=== PATIENT | male | born 1965 | race Caucasian/White ===

== ENCOUNTER 2018-11-21 10:12 | Observation (INO) ==
[2018-11-21] MEDS ORDERED: NALOXONE HCL 1 MG/1 ML SYRG IV ONE ×2 (10:14→10:20)
[2018-11-21 10:26] LABS: Urine Bilirubin Negative (NEGATIVE); Urine Blood Negative /ul (NEGATIVE); Urine Ketone Negative (NEGATIVE); Urine Nitrite Negative (NEGATIVE); Urine Protein Negative (NEGATIVE); Urine Specific Gravity <=1.005 SP.GR. (1.005-1.030); Urine Urobilinogen Normal (NORMAL); Urine pH 5.5 pH (5.0-7.0)
[2018-11-21 10:35] LABS: Urine Appearance Clear (CLEAR); Urine Bacteria None Seen; Urine Color Pale Yellow; Urine RBC None Seen /hpf (0-5); Urine WBC None Seen /hpf (0-5)
[2018-11-21 10:39] LABS: Cocaine Ur Negative (NEGATIVE); Urine Barbiturate Negative (NEGATIVE); Urine Benzodiazepines Negative (NEGATIVE); Urine Opiates Negative (NEGATIVE); Urine PCP Negative (NEGATIVE); Urine THC Negative (NEGATIVE)
[2018-11-21 10:44] LABS: Hematocrit 48.2 % (42.0-52.0); Hemoglobin 16.9 gm/dL (13.5-18.0); Mean Cell Volume 93.8 fl (78-100); Mean Corpuscular Hemoglobin 32.9 pg (27-31); Mean Corpuscular Hgb Conc 35.1 g/dl (32-36); Neutrophil # 2.3 K/mm3 (1.3-6.0); Neutrophil % 32.5 % (42-75.0); Platelet Count 203 K/mm3 (150-450); Red Blood Count 5.14 M/mm3 (4.7-6.0); Red Cell Distribution Width 14.5 % (11.5-14.0); White Blood Count 7.1 K/mm3 (4.0-10.5)
[2018-11-21 11:03] LABS: ALT 48 U/L (19-67); AST 27 U/L (0-48); Albumin * 3.7 gm/dl (3.4-5.0); Alkaline Phosphatase * 62 U/L (50-170); Anion Gap 15.7 mmol/L (6.8-13.8); BUN/Creatinine Ratio 12.7 (9.0-21.6); Bilirubin, Total 0.4 mg/dL (0.0-1.1); Blood Urea Nitrogen 9 mg/dL (6-23); Ca. Corrected For Albumin 8.6 mg/dL (8.4-10.2); Calcium * 8.7 mg/dL (7.9-10.9); Chloride 104 mmol/L (97-106); Glucose * 115 mg/dL (70-110); Potassium 3.7 mmol/L (3.4-4.6); Salicylate 3.3 mg/dL (2.8-20.0); Sodium 140 mmol/L (132-142); Total Protein 7.1 gm/dL (6.2-8.2)
[2018-11-21] MEDS ORDERED: NORMAL SALINE 1,000 ML IV ONE ×2 (11:46→13:12)
--- NOTE | 2018-11-21 12:25 | ERNOTE ---
Neuro HPI ER Record Presenting Symptoms: other - Patient was found down in the parking lot and just prior to being found had apparently thrown up. Time Seen by Provider: 11/21/18 10:22 Source: EMS, police Exam Limitations: intoxication Allergies/Adverse Reactions: Allergies Allergy/AdvReac Type Severity Reaction Status Date / Time No Known Allergies Allergy Unverified 11/21/18 10:34 Home Medications: HOME MEDICATIONS Unobtainable 11/21/18 [Last Taken Unknown] - History of Present Illness Narrative: Patient woke up and stated that he had indeed drank an excessive amount of alcohol. Patient is very irascible and given his advanced state of intoxication we are unable to reason with him. Onset: cannot confirm onset, other - pt confirms drinking alot of ETOH last night and into this morning Severity: severe - Character of Deficits Additional Deficits: Present: impaired speech - slurring his speech secondary to ETOH intoxication Baseline Cognition: Present: alert, oriented x 4 Baseline Gait: Present: walks w/o assistance Associated Symptoms: Reports: trouble concentrating, trouble thinking Review of Systems - Review of Systems Constitutional: Present: See HPI EYE: Present: no symptoms reported ENT: Present: no symptoms reported Respiratory: Present: no symptoms reported Cardiology: Present: no symptoms reported Gastrointestinal/Abdominal: Present: no symptoms reported Genitourinary: Present: no symptoms reported Musculoskeletal: Present: no symptoms reported Skin: Present: no symptoms reported Neurological: Present: no symptoms reported Endocrine: Present: no symptoms reported Hematologic/Lymphatic: Present: no symptoms reported Psych: Present: no symptoms reported All Other Systems: All systems neg except as marked - while the patient denies any other symptoms, he is quite intoxicated Medical History (Updated 11/21/18 @ 12:24 by Lois Walsh RN) unable to obtain PMH d/t AMS Surgical History: Surgical History (Updated 11/21/18 @ 12:24 by Lois Walsh RN) unable to obtain PMH d/t AMS Family History: Family History (Updated 11/21/18 @ 12:24 by Lois Walsh RN) Other unable to obtain d/t AMS Social History: Preferred Language Frisian No Social History Section defined Physical Exam - Physical Exam General Appearance: Present: wd/wn, alert, anxious Head Exam: Present: normal inspection, no evidence of injury Eye Exam: Normal inspection: bilateral, PERRL: bilateral Ears, Nose, Throat: Present: normal ENT inspection, H, normal pharynx Neck: Present: normal inspection, nontender Respiratory: Present: no respiratory distress, normal breath sounds, no accessory muscle use, chest nontender, lungs clear Cardiovascular/Chest: Present: regular rate, rhythm, no murmur, normal peripheral pulses Gastrointestinal/Abdominal: Present: normal bowel sounds, nontender, nondistended, soft, no organomegaly Rectal Exam: Present: deferred Back Exam: Present: normal inspection, normal range of motion Extremity Exam: Present: normal inspection, non-tender, no edema, normal range of motion Neurological Exam: Present: disoriented to time, other - I suspect all secondary to the severe ETOH intoxication Skin Exam: Present: normal color, warm/dry Lymphatic Exam: Present: no adenopathy Progress - Results and Orders Patient's Lab Results:: I have reviewed the patient's lab results. - Vital Signs Patient's Vital Signs:: I have reviewed the patient's vital signs. Vital Signs: Vital Signs 11/21/18 10:13 11/21/18 10:29 11/21/18 10:30 Pulse Rate 71 72 74 Respiratory Rate 15 21 H Blood Pressure 100/66 91/64 O2 Sat by Pulse Oximetry 94 99 11/21/18 11:22 11/21/18 12:04 Pulse Rate 73 74 Respiratory Rate 15 15 Blood Pressure 89/65 L 110/64 O2 Sat by Pulse Oximetry 94 94 - EKG EKG #1 EKG: NSR EKG read: Reviewed by me - X-Ray X-Ray #1 X-Ray: chest Interpretation: Reviewed by me - Progress/Reassessment Chief Complaint: Altered Mental Status Plan - Plan Plan: Patient is far too intoxicated to be discharged, as I suspect is going to take at least 24 hours to get him back to legally not intoxicated state. Patient will be admitted for 24-hour observation for acute detox. Patient appears to be protecting his airway at this point so I have withheld endotracheal intubation, however that may become necessary and we will hold that in mind. Departure Clinical Impression: Alcohol intoxication Qualifiers: Complication of substance-induced condition: with unspecified complication Qualified Code(s): F10.929 - Alcohol use, unspecified with intoxication, unspecified - Departure Disposition: Still a patient Condition: Fair
[2018-11-21] MEDS ORDERED: LORazepam 2 MG/ML DISP.SYRIN IV ONE ×2 (12:29→13:11)
[2018-11-21] MEDS ORDERED: LORazepam 2 MG/ML DISP.SYRIN IM ONE (14:00)
[2018-11-21] MEDS ORDERED: MULTIVIT INFUSN,ADULT 4,VIT K 10 ML, THIAMINE HCL 100 MG in NORMAL SALINE 1,000 ML IV ONE (14:15)
--- NOTE | 2018-11-21 14:30 | HP ---
Chief Complaint - Chief Complaint Date of Service: 11/21/18 Time of Service: 13:15 Chief Complaint: Ethanol toxicity, ETOH > 500. Needs detoxed. History of Present Illness: Charles Tovar is a 52 yo. morbidly obese wh. male who was found unconcious lying between two cars. EMS was summoned and he was brought to our ER. His Bl. Alc. was 506. He was combative and not cooperative. He states he is a life long alcoholic. He was given Narcan twice on arrival as he ws unconcious and he asakened but his drug screen was negative for everything except alcohol. his liver enzymes are surprisingly normal. He has awakened some and wanting to know if I will help him through the withdrawel process. He is being loud and boisterous and acting aggressively toward his and staff. He had 1 mg of Lorazepam twice in the ER and I have given him another 2mg. He is still being difficult to manage. Medical History (Updated 11/21/18 @ 12:33 by Rich Montes DO) unable to obtain PMH d/t AMS Surgical History: Surgical History (Updated 11/21/18 @ 12:24 by Lois Walsh RN) unable to obtain H d/t AMS Family History: Family History (Updated 11/21/18 @ 12:24 by Lois Walsh RN) Other unable to obtain d/t AMS Social History: Preferred Language Persian No Social History Section defined Review Of Systems (GEN) - Review of Systems Generalized/Overall Review: Present: No Symptoms Reported EENTM: Present: No Symptoms Reported Respiratory: Present: No Symptoms Reported Cardiac: Present: No Symptoms Reported Abdominal: Present: No Symptoms Reported Genitourinary: Present: No Symptoms Reported Musculoskeletal: Present: No Symptoms Reported Neurological: Present: No Symptoms Reported, Other - Extremely innebriated. Skin: Present: No Symptoms Reported Endocrine: Present: No Symptoms Reported Allergies/Adverse Reactions: Allergies Allergy/AdvReac Type Severity Reaction Status Date / Time No Known Allergies Allergy Unverified 11/21/18 10:34 Home Medications: HOME MEDICATIONS Unobtainable 11/21/18 [Last Taken Unknown] Exam - Exam Vital Signs: Vital Signs - Last Taken Pulse 75 11/21/18 13:10 Resp 19 11/21/18 13:10 BP 132/73 11/21/18 13:10 Pulse Ox 100 11/21/18 13:10 Constitutional: Present: Alert, Oriented x3, Cooperative, Well developed, Well nourished ENT Exam: Present: normal ENT inspection, hearing grossly normal, pharynx normal, TMs normal Eye Exam: bilateral eye: normal inspection, PERRL, EOMI Neck: Present: non-tender, full range of motion Back Exam: Present: normal inspection, no CVA tenderness, no vertebral tenderness Breasts: Present: Exam deferred Respiratory: Present: chest non-tender Cardiovascular/Chest: Present: normal peripheral pulses, regular rate, rhythm, no chest tenderness, no edema, no gallop, no JVD, no murmur, no rub Peripheral Pulses: carotid (R): 2+, carotid (L): 2+, radial (R): 2+, radial (L): 2+ Abdomen: Present: Normal bowel sounds, soft, nontender, nondistended, no rebound tenderness, no hepatospenomegaly, no masses, obese /Rectal: Present: Exam deferred Extremity: Present: normal range of motion, non-tender, normal inspection, no pedal edema, no calf tenderness, normal capillary refill Skin Exam: Present: normal color, warm/dry, no cyanosis Lymphatic: Present: no adenopathy Neurologic: Present: resident services supervisor II-XII nml as tested, abnormal gait Appearance: Present: appropriate appearance, impaired insight, impaired recent memory Eye contact: Present: belligerent, uncooperative Thoughts: Present: no apparent hallucination, flight of ideas Diagnostic Studies: Abnormal Lab Results 11/21/18 11/21/18 Range/Units 10:29 10:29 MCH 32.9 H (27-31) pg RDW 14.5 H (11.5-14.0) % Neutrophils % 32.5 L (42-75.0) % Monocytes % 13.6 H (0.0-9) % Eosinophils % 4.1 H (0.0-3.0) % Basophils % 1.7 H (0.0-1.0) % Anion Gap 15.7 H (6.8-13.8) mmol/L Random Glucose 115 H (70-110) mg/dL Acetaminophen Less than 0.2 L (10.0-30.0) mcg/mL Ethyl Alcohol 508.0 H (0.0-10.0) mg/dL Laboratory Results WBC 7.1 K/mm3 (4.0-10.5) 11/21/18 10:29 RBC 5.14 M/mm3 (4.7-6.0) 11/21/18 10:29 Hgb 16.9 gm/dL (13.5-18.0) 11/21/18 10:29 Hct 48.2 % (42.0-52.0) 11/21/18 10:29 MCV 93.8 fl (78-100) 11/21/18 10:29 MCH 32.9 pg (27-31) H 11/21/18 10:29 MCHC 35.1 g/dl (32-36) 11/21/18 10:29 RDW 14.5 % (11.5-14.0) H 11/21/18 10:29 Plt Count 203 K/mm3 (150-450) 11/21/18 10:29 MPV 9.0 fl (8-11.3) 11/21/18 10:29 Immature Gran % (Auto) 0.40 % (0.001-0.429) 11/21/18 10:29 Immature Gran # (Auto) 0.03 K/mm3 (0.000-0.0310) 11/21/18 10:29 32.5 % (42-75.0) L 11/21/18 10:29 47.7 % (20-51) 11/21/18 10:29 13.6 % (0.0-9) H 11/21/18 10:29 4.1 % (0.0-3.0) H 11/21/18 10:29 1.7 % (0.0-1.0) H 11/21/18 10:29 Nucleated RBC % 0.0 k/mm3 (0-1) 11/21/18 10:29 2.3 K/mm3 (1.3-6.0) 11/21/18 10:29 3.40 k/mm3 (1.5-3.5) 11/21/18 10:29 1.0 k/mm3 (0.0-1.0) 11/21/18 10:29 0.3 k/mm3 (0.0-0.7) 11/21/18 10:29 Absolute Basophils 0.1 k/mm3 (0.0-0.1) 11/21/18 10:29 Sodium 140 mmol/L (132-142) 11/21/18 10:29 140 mmol/L (130-142) 11/21/18 10:29 Potassium 3.7 mmol/L (3.4-4.6) 11/21/18 10:29 Chloride 104 mmol/L (97-106) 11/21/18 10:29 Carbon Dioxide 24.0 mmol/L (24-32.6) 11/21/18 10:29 15.7 mmol/L (6.8-13.8) H 11/21/18 10:29 BUN 9 mg/dL (6-23) 11/21/18 10:29 0.71 mg/dL (0.4-1.4) 11/21/18 10:29 Est GFR (Non-Af Amer) 124 mL/min (60-130) 11/21/18 10:29 12.7 (9.0-21.6) 11/21/18 10:29 115 mg/dL (70-110) H 11/21/18 10:29 Calcium 8.7 mg/dL (7.9-10.9) 11/21/18 10:29 Calcium Adj for Albumin 8.6 mg/dL (8.4-10.2) 11/21/18 10:29 0.4 mg/dL (0.0-1.1) 11/21/18 10:29 AST 27 U/L (0-48) 11/21/18 10:29 ALT 48 U/L (19-67) 11/21/18 10:29 62 U/L (50-170) 11/21/18 10:29 7.1 gm/dL (6.2-8.2) 11/21/18 10:29 3.7 gm/dl (3.4-5.0) 11/21/18 10:29 Pale yellow 11/21/18 10:21 Clear (CLEAR) 11/21/18 10:21 5.5 pH (5.0-7.0) 11/21/18 10:21 Ur Specific [place] <=1.005 SP.GR. (1.005-1.030) 11/21/18 10:21 Negative mg/dL (NEGATIVE) 11/21/18 10:21 Negative mg/dL (NEGATIVE) 11/21/18 10:21 Negative mg/dL (NEGATIVE) 11/21/18 10:21 Negative /ul (NEGATIVE) 11/21/18 10:21 Negative (NEGATIVE) 11/21/18 10:21 Negative mg/dl (NEGATIVE) 11/21/18 10:21 Normal EU/dl (NORMAL) 11/21/18 10:21 Ur Leukocyte Esterase Negative /ul (NEGATIVE) 11/21/18 10:21 None seen /hpf (0-5) 11/21/18 10:21 None seen /hpf (0-5) 11/21/18 10:21 Ur Epithelial Cells None seen /hpf (0-5) 11/21/18 10:21 None seen (NONE) 11/21/18 10:21 No culture indicated 11/21/18 10:21 Salicylates 3.3 mg/dL (2.8-20.0) 11/21/18 10:29 Negative (NEGATIVE) 11/21/18 10:21 Acetaminophen Less than 0.2 mcg/mL (10.0-30.0) L 11/21/18 10:29 Negative (NEGATIVE) 11/21/18 10:21 Ur Phencyclidine Scrn Negative (NEGATIVE) 11/21/18 10:21 Urine Amphetamine Negative (NEGATIVE) 11/21/18 10:21 U Benzodiazepines Scrn Negative (NEGATIVE) 11/21/18 10:21 Negative (NEGATIVE) 11/21/18 10:21 Negative (NEGATIVE) 11/21/18 10:21 Ethyl Alcohol 508.0 mg/dL (0.0-10.0) H 11/21/18 10:29
[2018-11-21] MEDS: LORazepam 2 MG/ML DISP.SYRIN IV PRN ×2 (19:13→22:24)
[2018-11-21] MEDS ORDERED: ACETAMINOPHEN 500 MG TABLET PO PRN (19:22)
[2018-11-21] MEDS ORDERED: NORMAL SALINE 1,000 ML IV PRN (19:23)
[2018-11-21] MEDS ORDERED: ACETAMINOPHEN 500 MG TABLET ONE (19:34)
[2018-11-21 21:25] VITALS: BP 112/66
--- NOTE | 2018-11-26 19:36 | DS ---
Description of Stay: This 53-year-old white male was found lying down on concrete unconscious by a mid-level practitioner. She called EMS and he was brought to the hospital. Blood alcohol was greater than 500. He is extremely inebriated. However did not show signs of alcohol poisoning. He was admitted to [facility] because he was boisterous and uncooperative. Initially made some physical threats to family members and staff and was verbally abusive. He was given lorazepam and he slept for about 6 hours. He then awakened and signed himself out AGAINST MEDICAL ADVICE. Procedures Performed: see notes below List Procedures: He was placed in leather restraints for a while. Results and Findings: Lab Pending Results 11/21/18 10:21: Urine Color Pale yellow, Urine Appearance Clear, Urine pH 5.5, Ur Specific [place] <=1.005, Urine Protein Negative, Urine Glucose (UA) Negative, Urine Ketones Negative, Urine Blood Negative, Urine Nitrate Negative, Urine Bilirubin Negative, Urine Urobilinogen Normal, Ur Leukocyte Esterase Negative, Urine RBC None seen, Urine WBC None seen, Ur Epithelial Cells None seen, Urine Bacteria None seen, Urine Culture Comments No culture indicated 11/21/18 10:21: Urine Opiates Screen Negative, Barbiturate Screen Negative, Ur Phencyclidine Scrn Negative, Urine Amphetamine Negative, U Benzodiazepines Scrn Negative, Urine Cocaine Screen Negative, Urine Marijuana (THC) Negative 11/21/18 10:29: WBC 7.1, RBC 5.14, Hgb 16.9, Hct 48.2, MCV 93.8, MCH 32.9 H, MCHC 35.1, RDW 14.5 H, Plt Count 203, MPV 9.0, Immature Gran % (Auto) 0.40, Immature Gran # (Auto) 0.03, Neutrophils % 32.5 L, Lymphocytes % 47.7, Monocytes % 13.6 H, Eosinophils % 4.1 H, Basophils % 1.7 H, Nucleated RBC % 0.0, Neutrophils # 2.3, Lymphocytes # 3.40, Monocytes # 1.0, Eosinophils # 0.3, Absolute Basophils 0.1 11/21/18 10:29: Sodium 140, Plasma Sodium 140, Potassium 3.7, Chloride 104, Carbon Dioxide 24.0, Anion Gap 15.7 H, BUN 9, Creatinine 0.71, Est GFR (Non-Af Amer) 124, BUN/Creatinine Ratio 12.7, Random Glucose 115 H, Calcium 8.7, Calcium Adj for Albumin 8.6, Total Bilirubin 0.4, AST 27, ALT 48, Alkaline Phosphatase 62, Total Protein 7.1, Albumin 3.7, Salicylates 3.3, Acetaminophen Less than 0.2 L, Ethyl Alcohol 508.0 H Discharge Location: Other - 2 family members Disposition: Against medical advice Condition: Fair Discharge Activity: Activity as tolerated Discharge Diet: General/regular food Complete Home Medications List: Complete Home Medication List: Albuterol Sulfate [Albuterol Sulfate 0.63 MG/3ML] 0.63 mg INHALATION QID 11/21/18 Albuterol Sulfate [Ventolin Hfa] 90 mcg INHALATION Q4H 11/21/18 Amlodipine Besylate/Benazepril [Lotrel 5-10 mg Capsule] 1 ea PO DAILY 11/21/18 Esomeprazole Magnesium [Nexium] 40 mg PO DAILY 11/21/18 Fluticasone Propion/Salmeterol [Advair 250-50 Diskus] 1 puff INHALATION BID 11/21/18 Propranolol HCl [Inderal] 40 mg PO BID 11/21/18 Umeclidinium [place] [Incruse Ellipta] 62.5 mcg INHALATION DAILY 11/21/18 guaiFENesin [Mucinex] 1,200 mg PO BID 11/21/18
== END 2018-11-22 01:10 | disposition left against medical advice (07) ==
LOC: ER 10:12 → SCU 10:12
PROVIDERS: ADMIT Family Medicine; ATTEND Family Medicine
CPT/HCPCS: 36415; 71010; 71045; 80053; 80307; 80320; 80329; 81001; 85025; 93005; 94762; 96361; 96365; 96372; 96375; 99285; G0378; G0480; G0481